=== PATIENT | male | born 1970 | race Caucasian/White ===

== ENCOUNTER 2024-07-08 13:56 | Outpatient (CLI) | payer BC, SELFPAY ==
--- NOTE | ~2024-07-08 | CT_ITS ---
EXAMINATION: CT lung screening DATE: 07/08/2024 14:18 INDICATION: HX OF NICOTINE DEPENDENCE, quit smoking X 2 years TECHNIQUE: Computed tomography (CT) of the chest was performed without intravenous contrast. Addition al 3D reconstructions utilizing coronal maximum intensity projection (MIP) were performed. Automated exposure control and iterative reconstruction technique were employed. The dose-length product was 63 .96 mGy-cm. COMPARISON: None FINDINGS: Mild emphysema. Minimal atelectasis at the inferior right middle lobe and lingula. No suspicious pulm onary or endobronchial nodules, pneumonia, pulmonary edema or pleural effusion. Heart size is normal. No pericardial effusion. Prominent aortic valve calcification. Thoracic aorta is normal in caliber. No pathologically enlarged thoracic lymphadenopathy. Incompletely visualized at least 3.9 x 3.0 cm so ft tissue density mass abutting the anterior margin of the kidney which could represent a loop of sma ll bowel or exophytic complex cyst or neoplasm. IMPRESSION: 1. Lung-RADS category 1: Negative. Continue annual screening with noncontrast low-dose chest CT in 12 months. 2. Incompletely visualized at least 3.9 x 3.0 cm mass abutting the anterior left kidney which could r epresent a loop of small bowel or exophytic complex cystic renal lesion or renal cell carcinoma. Homero mmend further evaluation with pre and postcontrast MRI or CT. Reviewed, dictated and finalized at location B. IMPRESSION: 1. Lung-RADS category 1: Negative. Continue annual screening with noncontrast l ow-dose chest CT in 12 months. 2. Incompletely visualized at least 3.9 x 3.0 cm mass abutting the anterior lef t kidney which could represent a loop of small bowel or exophytic complex cysti c renal lesion or renal cell carcinoma. Recommend further evaluation with pre a nd postcontrast MRI or CT.
== END 2024-07-08 13:57 | disposition home or self-care (01) ==
LOC: CHSIMG 13:58
PROVIDERS: PCP Internal Medicine; Visit Provider Internal Medicine
DX: Z12.2 Encounter for screening for malignant neoplasm of respiratory organs (principal); Z87.891 Personal history of nicotine dependence
CPT/HCPCS: 71271

== ENCOUNTER 2024-08-22 12:41 | Outpatient (CLI) | payer BC, SELFPAY | END 2024-08-22 12:42 | disposition home or self-care (01) | LOC: ANHLAB 12:42 | PROVIDERS: PCP Internal Medicine; Visit Provider Anesthesiology | DX: K40.90 Unilateral inguinal hernia, without obstruction or gangrene, not specified as recurrent (principal) | CPT/HCPCS: 36415; 86850; 86900; 86901 ==

== ENCOUNTER 2024-08-26 00:22 | Day surgery (SDC) | payer BC, SELFPAY ==
[2024-08-19 11:01] VITALS: BMI 22.1
--- NOTE | 2024-08-19 11:08 | PC.NURSE ---
Report to the Outpatient Waiting Room, entrance under the green pavilion located off [facility], at time _0600_ on date _[id number]_. Planned Procedure Time: _0730_.? Time changes happen often and if your time is changed the preop area will call you the afternoon before. - You and your visitor will be asked to self-screen and do not enter if you have any COVID symptoms. Please call surgeon if you need to reschedule. - A mask is optional within the hospital at this time. Patients may have clear liquids (water, carbonated beverages, clear teas, apple juice) until 3 hours prior to surgery with a maximum of 20 ounces. - No food from midnight until time of surgery and no smoking Take only the following medications with a SIP of water on the morning of surgery: __Inhalers DO NOT STOP ANY OF YOUR OTHER PRESCRIPTION MEDICATIONS PRIOR TO SURGERY EXCEPT THE FOLLOWING Medications to discontinue per physician ____None Please no make-up, nail nigerian, hairspray, perfume, deodorant, or body powder the day of surgery.? No jewelry (including any body piercings) or valuables the day of surgery, leave them at home.? Please take a shower or bath the night before, or the morning of, surgery with an antibacterial soap.? Wear comfortable, loose fitting clothing.? - Jewelry must be removed prior to entering the operating room.? Rings and piercings that are not removed may be cut off. - The hospital will not accept responsibility for valuables.? - Please leave all valuables, including medications, at home the day of surgery. If you are going home after surgery, a licensed boom truck driver must drive you home.? - NO public transportation without another adult if you receive anesthesia. - We recommend that an adult stay with you for 24 hours following discharge. - We also recommend that you do not drive, make important decision, drink alcoholic beverages, or take any drugs that were not prescribed by your health care provider for at least 24 hours after your discharge time. Follow any additional instructions given to you from your surgeon. Telephone instructions given to _Susana/wife__and asked if any additional questions and then verbalized understanding. Patient called before this interview and gave permission to speak to Susana. Patient advised to call surgeon office or pre surgery nurse liaison [phone] if any additional questions.
[2024-08-26] VITALS (7 sets, daily range): BP systolic 113–121; BP diastolic 75–85; PULSE 64–82; RESP 14–20; TEMP 36.2–36.6; O2SAT 97–100; BMI 21.9
[2024-08-26] MEDS: LACTATED RINGERS 1,000 ML 30 ML IV CONT ×2 (06:40→08:42)
[2024-08-26] MEDS: KETOROLAC 15 MG/ML VIAL (*BKC) IV PUSH (06:55)
[2024-08-26] MEDS: ACETAMINOPHEN 500 MG TABLET 1000 MG PO (06:55)
--- NOTE | 2024-08-26 07:11 | WPDHPUPDATE1 ---
History and Physical Update Update Date/Time: 08/26/24 07:11 History and Physical has been reviewed, including an updated exam of the patient. There are NO changes in the patient's condition. Risks, benefits, and alternatives have been discussed and questions answered. Patient agrees to proceed with procedure.
--- NOTE | 2024-08-26 07:11 | PM.IMHP ---
H&P: HPI History of Present Illness Date/Time: 08/26/24 07:11 Chief Complaint: right inguinal hernia Narrative: 53 yo man presents for right inguinal hernia repair. He reports no changes since last seen in office. Review of Systems Review of Systems: All systems reviewed & are unremarkable except as noted in HPI and below Constitutional: Constitutional: Denies chills, Denies fever(s), Denies headache(s) and Denies weight loss Eyes: Eyes: Denies change in vision ENT: Denies dizziness, Denies headache(s), Denies neck mass and Denies throat swelling Cardiovascular: Cardiovascular: Denies chest pain, Denies lightheadedness and Denies dyspnea Respiratory: Respiratory: Denies cough, Denies dyspnea and Denies wheezing Gastrointestinal: Gastrointestinal: Denies abdominal pain, Denies change in bowel habits, Denies nausea and Denies vomiting Genitourinary: Genitourinary: Denies hematuria and Denies dysuria Musculoskeletal: Musculoskeletal: Reports as per HPI Integumentary/Breasts: Skin/Breast: Reports as per HPI Neurologic: Denies dizziness and Denies headache(s) Allergic/Immunologic: Allergic/Immunologic: Denies throat swelling and Denies wheezing PMFSH Past Medical History Medical History COPD (chronic obstructive pulmonary disease) Surgical History Surgical History History of vasectomy Family History Family History Mother Diabetes mellitus Father Cerebrovascular accident Heart disease Social History Social History Years smoked: 20 Smoking status: Former smoker Tobacco type: cigarettes Smoking end date: 08/19/20 Alcohol intake: never Substance use: never Do You Feel Safe in your Home?: Yes Lack of Transportation: No Lack of Food: Never True Current Housing: I Have Housing Concerned About Future Housing: No Difficulty Paying Gas/Electric Bills: No Difficulty Paying for Meds: No Currently Unemployed: No Education: High School Diploma/GED Difficulty w/ Childcare or Family Care: No Living arrangements: with family Spiritual care concerns: No Meds Home Medications and Allergies Home Medications Medication Instructions Recorded Confirmed Type fluticasone 100 mcg-salmeterol 50 1 inh inhalation Q12H 07/17/24 08/19/24 History mcg/dose blistr powdr for inhalation (Wixela Inhub) ipratropium 20 mcg-albuterol 100 1 puff inhalation QID 07/17/24 08/26/24 History mcg/actuation mist for inhalation (Combivent Respimat) Allergies Allergy/AdvReac Type Severity Reaction Status Date / Time levofloxacin [From Levaquin] AdvReac Intermediate Rash Verified 08/26/24 06:53 Vital Signs Vital Signs - 24 hr 08/26/24 06:02 Temperature 97.1 F L Pulse Rate 77 Respiratory Rate 18 Blood Pressure 121/85 Pulse Oximetry 100 Oxygen Delivery Room Air Exam Const: General: no acute distress and alert Orientation/consciousness: patient oriented x3 HENMT: Head: normocephalic and atraumatic Ears: hearing grossly normal bilaterally Face/Nose/Sinus: Normal nares present Mouth: Yes Normal oral and palatal mucosa present Eyes: Periorbital: periorbital findings normal Sclera: sclerae normal EOM: EOMs intact bilaterally Neck: Neck: normal visual inspection, no lymphadenopathy and trachea midline Chest: Chest palpation & inspection: normal inspection of the chest Resp: Effort & Inspection: normal respiratory effort Auscultation: clear to auscultation bilaterally Cardio: Jugular venous distension: no JVD Rate: regular rate Rhythm: regular rhythm Heart sounds: S1 normal heart sound present and S2 normal heart sound present Peripheral pulses: Peripheral pulses 2+ throughout GI: Inspection: normal to inspection GI Palp: Yes Soft to palpation, No Tenderness to palpation present (GI), No Guarding due to palpation present (GI) and No Rebound tenderness present Percussion: Yes normal to percussion Auscultation: normal bowel sounds : General: Yes no CVA tenderness Scrotum: inguinal hernia on the right Back/Spine/Pelvis: Back: no CVA tenderness Neuro: General: patient oriented x3, no focal motor deficits and CN's II-XI intact bilaterally Cognition (Neuro): normal cognition Speech: normal speech Motor exam (neuro): 5/5 motor strength present throughout Extrem: General: capillary refill normal and no clubbing, cyanosis or edema Assessment and Plan Assessment and plan (1) Right inguinal hernia: Code(s): K40.90 - Unilateral inguinal hernia, without obstruction or gangrene, not specified as recurrent Status: Acute Assessment and Plan: I have recommended laparoscopic right inguinal hernia repair with mesh, da Sachin assisted. I have discussed the procedure, risks, benefits, and alternatives with the patient. All questions answered. No changes since last seen in office.
--- NOTE | 2024-08-26 07:21 | P.PNAN_ITS ---
Anes - Initial Pre Proc Eval Procedure: Operation Date: 08/26/24 07:30 Proposed Procedures p Laparoscopic Right Inguinal Hernia with Mesh, Davinci Assisted - Miguelito Enciso DO Date/Time: 08/26/24 07:21 Surgeon: Miguelito Enciso DO Pre Op Diagnosis: Rt Ing Hernia Patient Data Age: 53 Gender: M Height: 1.6 m Weight: 56 kg Last Vital Signs Temp 97.1 F L 08/26/24 06:02 Pulse 77 08/26/24 06:02 Resp 18 08/26/24 06:02 BP 121/85 08/26/24 06:02 Pulse Ox 100 08/26/24 06:02 O2 Del Method Room Air 08/26/24 06:02 Allergies Allergy/AdvReac Type Severity Reaction Status Date / Time levofloxacin [From Levaquin] AdvReac Intermediate Rash Verified 08/26/24 06:53 Home Medications Medication Instructions Recorded Confirmed Type fluticasone 100 mcg-salmeterol 50 1 inh inhalation Q12H 07/17/24 08/19/24 History mcg/dose blistr powdr for inhalation (Wixela Inhub) ipratropium 20 mcg-albuterol 100 1 puff inhalation QID 07/17/24 08/26/24 History mcg/actuation mist for inhalation (Combivent Respimat) Patient hx anesthesia problems: none Family hx anesthesia problems: none Results Review: All pre-operative results and documents have been reviewed as part of the pre- operative evaluation. [facility] Past Medical History Medical History COPD (chronic obstructive pulmonary disease) Surgical History Surgical History History of vasectomy Family History Family History Mother Diabetes mellitus Father Cerebrovascular accident Heart disease Social History Social History Years smoked: 20 Smoking status: Former smoker Tobacco type: cigarettes Smoking end date: 08/19/20 Alcohol intake: never Substance use: never Do You Feel Safe in your Home?: Yes Lack of Transportation: No Lack of Food: Never True Current Housing: I Have Housing Concerned About Future Housing: No Difficulty Paying Gas/Electric Bills: No Difficulty Paying for Meds: No Currently Unemployed: No Education: High School Diploma/GED Difficulty w/ Childcare or Family Care: No Living arrangements: with family Spiritual care concerns: No Anes - Eval Final PreProcedure Day of Procedure 08/26/24 07:21 Patient weight: normal Heart: regular rate and rhythm Lungs: clear to auscultation Airway: Mallampati scale class II Neurological: alert and oriented Last oral intake: >/= 8 hours ASA classification: III Emergent: no Anesthetic plan: proceed Anesthesia type and monitoring: general ETT and standard monitoring Results Review: All pre-operative results and documents have been reviewed as part of the pre- operative evaluation. Informed Consent: The patient's anesthetic plan and its attendant risks and benefits were discussed with the patient/family/POA. Questions were solicited and answers provided to the satisfaction of the patient/family/POA.
[2024-08-26] MEDS: ceFAZolin 2 GM/D5W 50 ML 2 GM/50 ML BAG IVPB (07:28)
--- NOTE | 2024-08-26 08:25 | W.PM.PROC2 ---
Procedure Note - Detailed Date of Procedure 08/26/24 Pre-op Diagnosis Rt Ing Hernia Post-op Diagnosis Same (Direct [facility]) Procedure Performed Laparoscopic right inguinal hernia repair with mesh, da Sachin assisted Surgeon Miguelito Enciso DO Anesthesia General and Local (0.5% bupivacaine with epinephrine) Indications This is a 53-year-old man who presented with a right groin bulge that he had 1st noticed about 3 years ago. It has gradually become larger over that time. He now has an easily visible right inguinal hernia. Discussions were made with the patient about treatment options and decision was made to proceed with robotic assisted laparoscopic right inguinal hernia repair with mesh. Findings Laparoscopic right inguinal hernia repair was performed. The patient was found to have a moderate-sized direct right inguinal hernia. There was no evidence of a left inguinal hernia. A robotic transabdominal preperitoneal approach was utilized for right inguinal hernia repair. Once a wide enough preperitoneal pocket was created and the hernia sac was reduced, I then placed a large right 3DMax mid mesh overlying the entire right myopectineal orifice. No specimens were obtained for pathology. Description of Procedure Procedure as well as risks, benefits, and alternatives were discussed with the patient. Written consent was obtained and placed in chart prior to procedure. Patient was brought back to surgical suite. He was placed supine on operating table. Time-out was done to confirm patient and procedure. He was then intubated by Anesthesia Department. His abdomen was prepped and draped in sterile fashion using chlorhexidine prep. 0.5% bupivacaine with epinephrine was infiltrated at each location for incision. A 12 millimeter transverse incision was made just superior to the umbilicus using a 15 blade scalpel. Blunt dissection was carried out down to the linea alba. A vertical incision was made at the linea alba using a 15 blade scalpel. The peritoneum was then bluntly entered. A 12 millimeter trocar was inserted and carbon dioxide insufflation was used to create a pneumoperitoneum. A camera was inserted and the abdominal cavity was inspected. The patient was placed in slight Trendelenburg position. An 8 millimeter incision was made on the right lateral abdomen and an 8 millimeter trocar was inserted under direct visualization. Another 8 millimeter incision was made in the left lateral abdomen and an 8 millimeter trocar was inserted under direct visualization. The robotic arms were brought up to the patient's bedside and secured to the ports. The camera and instruments were inserted. I then moved over to the robotic console and took control of the camera and instruments. After careful inspection of the abdominal cavity, I began scoring the peritoneum along the right lower quadrant using scissors with electrocautery. The preperitoneal plane was entered and this was carefully dissected caudally along the inferior epigastric vessels. Careful dissection with scissors with electrocautery and blunt dissection was used to continue this dissection. I dissected far enough laterally to allow for mesh placement, and also dissected medially to identify the pubic arch and Alonso's ligament. The hernia sac was identified and carefully dissected posteriorly. The cord contents were also identified and the peritoneum was carefully dissected far enough posteriorly to allow for mesh placement. Once an adequate pocket was created, I then placed the mesh within the preperitoneal pocket and carefully unfolded it. The mesh was centered on the hernia defect with adequate overlap circumferentially. The inferior edge of the mesh was inspected to ensure that it was far enough away from the peritoneal edge. The mesh appeared in proper position overlying the entire myopectineal orifice. The mesh was secured using 3-0 Vicryl simple interrupted sutures in Alonso's ligament, the superior medial edge, and superior lateral edge of the mesh. The peritoneum was then closed over the mesh using a 3-0 V-lock running absorbable suture. The robotic instruments were removed. The robotic arms were disengaged from the ports and moved away from the bedside. The patient was flattened out in bed, the ports were removed under direct visualization, and the pneumoperitoneum was released. The fascia of the umbilical incision was approximated using an 0 Vicryl [id number] suture. The skin of the incisions was approximated using 4-0 Monocryl subcuticular suture, and Exofin glue was applied on top. The patient was awakened from anesthesia, extubated, and transferred to recovery. Implants Large right 3DMax mid mesh Estimated Blood Loss 5 Complications No immediate complications Condition Stable Disposition Same day [facility] Billing Surgery - Charge Forward: Surgery Billing
[2024-08-26] MEDS: BUPIVACAINE/EPINEPHRINE 0.5% 50 ML VIAL INFILTRATE (08:30)
--- NOTE | 2024-08-26 10:04 | SUR.PHASEII ---
Pt ambulated to bathroom and voided unmeasured amt of clear yellow urine without difficulty.
== END 2024-08-26 10:11 | disposition home or self-care (01) ==
PROVIDERS: PCP Internal Medicine; Visit Provider Surgery
PROC: 8E0Y4CZ Robotic Assisted Procedure of Lower Extremity, Percutaneous Endoscopic Approach (ICD-10-PCS; CPT 49650; principal; 2024-08-26 07:30)
DX: K40.90 Unilateral inguinal hernia, without obstruction or gangrene, not specified as recurrent (principal); J44.9 Chronic obstructive pulmonary disease, unspecified; Z79.51 Long term (current) use of inhaled steroids; Z98.890 Other specified postprocedural states; Z87.891 Personal history of nicotine dependence; Z82.49 Family history of ischemic heart disease and other diseases of the circulatory system
CPT/HCPCS: 49650; S2900; A9270; C1781; J0690; J1100; J1885; J2003; J2250; J2405; J2704; J3010; J7030; J7120

== ENCOUNTER 2025-07-27 13:15 | Outpatient (CLI) | payer BC, SELFPAY ==
--- NOTE | ~2025-07-27 | US_ITS ---
EXAMINATION: US carotid duplex BI DATE: 07/27/2025 14:33 INDICATION: Systolic heart murmur. TECHNIQUE: Grayscale, color Doppler, and pulsed Doppler images of the cervical carotid arteries were obtained. The degree of vessel stenosis is placed in one of the following categories: normal, <50%, 50-69%, >=70% but less than near- occlusion, near-occlusion, or total occlusion. Note that percent stenosis relative to normal distal artery lumen diameter is indirectly measured from velocity measurements as described by Quique, et al. Radiology 2003; 229:340-346. COMPARISON: None. FINDINGS: RIGHT: The right common carotid artery (CCA) peak systolic velocity (PSV) is 100 cm/s. The right internal carotid artery (ICA) PSV is 77 cm/s. The right ICA end- diastolic velocity (EDV) is 37 cm/s. The right ICA/CCA PSV ratio is 0.8. Grayscale and color Doppler images yield an estimate of <50% diameter reduction from plaque in the ICA. There is antegrade flow in the right vertebral artery. LEFT: The left CCA PSV is 113 cm/s. The left ICA PSV is 111 cm/s. The left ICA EDV is 46 cm/s. The left ICA/CCA PSV ratio is 1.0. Grayscale and color Doppler images yield an estimate of <50% diameter reduction from plaque in the ICA. There is antegrade flow in the left vertebral artery. IMPRESSION: 1. <50% stenosis in the right internal carotid artery. 2. <50% stenosis in the left internal carotid artery. Reviewed, dictated and finalized at location E.
--- NOTE | 2025-07-27 13:26 | ECHO_ITS ---
Patient Info Name: Quinton Babb Age: 54 years : 1970 Gender: Male Ht: 63 in Wt: 125 lbs BSA: 1.59 m2 HR: 75 bpm BP: 132 / 81 mmHg Technical Quality: Good Exam Date: 07/27/2025 1:28 PM Patient Status: O Admit Date: 07/27/2025 Exam Type: CA echo doppler color flow Complete two-dimensional, color flow and Doppler transthoracic echocardiogram is performed. Staff Referring Physician: Jacques Mckee MD [employer]ide Furnace Tender: Lauren Urias Attending Provider: Jacques Mckee MD Summary 1. Complete two-dimensional, color flow and Doppler transthoracic echocardiogram is performed. 2. Left ventricular chamber dimension is normal. 3. Left ventricular systolic function is normal, estimated at 60-65. 4. There is mild concentric increased left ventricular wall thickness. 5. The left ventricular diastolic function is normal. 6. E/e' 6 is not elevated. 7. The aortic valve is not well visualized. Cannot determine number of aortic valve leaflets. 8. There is severe aortic valve sclerosis. 9. There is severe aortic valve stenosis with a peak velocity of 447 cm/s, mean gradient of 49 mmHg, and aortic valve area of 0.7 cm2. 10. There is mild aortic valve regurgitation. 11. There is mild mitral valve regurgitation. Left Ventricle E/e' 6 is not elevated. Left ventricular chamber dimension is normal. Left ventricular systolic function is normal, estimated at 60-65. There is mild concentric increased left ventricular wall thickness. The left ventricular diastolic function is normal. Right Ventricle Right ventricular chamber dimension is normal. Right ventricular systolic function is normal and with normal TAPSE 1.8 cm. Left Atria Left atrial chamber dimension is normal. Right Atria Right atrial chamber dimension is normal. Aortic Valve The aortic valve is not well visualized. Cannot determine number of aortic valve leaflets. There is severe aortic valve sclerosis. There is severe aortic valve stenosis with a peak velocity of 447 cm/s, mean gradient of 49 mmHg, and aortic valve area of 0.7 cm2. There is mild aortic valve regurgitation. Pulmonic Valve There is no pulmonic regurgitation. Mitral Valve There is no mitral valve stenosis. There is mild mitral valve regurgitation. Tricuspid Valve There is no tricuspid valve regurgitation. Pericardium/Pleural There is no pericardial effusion. Inferior Vena Cava Normal inferior vena cava with >50% collapse upon inspiration consistent with normal right atrial pressure, 5 mmHg. Aorta The aortic root size at the sinus of Valsalva is normal. Left Ventricular Outflow Tract Name Value Normal LVOT 2D LVOT Diameter 2.0 cm LVOT Doppler LVOT Peak Velocity 81 cm/s LVOT Peak Gradient 2 mmHg LVOT Mean Gradient 1 mmHg LVOT VTI 20 cm LVOT VTI/AV VTI Ratio 0.2 LVOT Stroke Volume 59 ml LVOT CO 4.3 l/min LVOT CI 2.7 l/min/m2 Pulmonic Valve Name Value Normal RVOT Doppler RVOT Peak Velocity 68 cm/s RVOT Peak Gradient 2 mmHg PV Doppler PV Peak Velocity 106 cm/s PV Peak Gradient 5 mmHg Mitral Valve Name Value Normal MV Diastolic Function MV E Peak Velocity 69 cm/s MV A Peak Velocity 54 cm/s MV E/A 1.3 MV Decel Time (PW) 226 ms MV Annular TDI MV E/e' (Septal) 6.2 MV E/e' (Lateral) 7.1 MV E/e' (Average) 6.7 Tricuspid Valve Name Value Normal Estimated PAP/RSVP RA Pressure 5 mmHg <=5 Aortic Valve Name Value Normal AV Doppler AV Peak Velocity 447 cm/s AV Peak Gradient 72 mmHg AV Mean Gradient 49 mmHg AV VTI 91 cm AV Area (Cont Eq VTI) 0.7 cm2 >=3.0 AV Area (Cont Eq Gelacio) 0.5 cm2 AV DI (Gelacio) 0.18 AV Regurgitation 2D LVOT Area 3.0 cm2 Ventricles Name Value Normal LV Dimensions 2D/MM IVS Diastolic Thickness (2D) 1.1 cm 0.6-1.0 LVID Diastole (2D) 4.0 cm 4.2-5.8 LVIW Diastolic Thickness (2D) 1.1 cm 0.6-1.0 LVID Systole (2D) 2.8 cm 2.5-4.0 LVOT Diameter 2.0 cm LV Mass (2D Cubed) 138.96 g 88.00-224.00 LV Mass Index (2D Cubed) 87 g/m2 49-115 Relative Wall Thickness (2D) 0.53 <=0.42 LV Fractional Shortening/Ejection Fraction 2D/MM LV Fractional Shortening (2D) 29 % 25-43 LV EF (2D Teichholz) 57 % LV Diastolic Volume (4C MOD) 79 ml LV EF (4C MOD) 62 % LV Diastolic Volume (2C MOD) 91 ml LV EF (2C MOD) 54 % LV Diastolic Volume (BP MOD) 85 ml 62-150 LV Diastolic Volume Index (BP MOD) 54 ml/m2 34-74 LV Systolic Volume (BP MOD) 36 ml 21-61 LV Systolic Volume Index (BP MOD) 23 ml/m2 11-31 LV EF (BP MOD) 57 % 52-72 LV Diastolic Length (4C) 8.1 cm LV Systolic Length (4C) 7.1 cm LV Stroke Volume (4C MOD) 49 ml Atria Name Value Normal LA Dimensions LA Volume (4C A-L) 15 ml LA Volume (BP A-L) 28 ml RA Dimensions RA Systolic Major Porter Length (4C) 3.6 cm 2.1-2.7 RA Area (4C) 7.1 cm2 <=18.0 Report Signatures
== END 2025-07-27 13:16 | disposition home or self-care (01) ==
LOC: CHSIMG 13:19
PROVIDERS: PCP Internal Medicine; Visit Provider Internal Medicine
DX: R01.1 Cardiac murmur, unspecified (principal); I65.23 Occlusion and stenosis of bilateral carotid arteries; I08.0 Rheumatic disorders of both mitral and aortic valves; I35.0 Nonrheumatic aortic (valve) stenosis
CPT/HCPCS: 93306; 93880

== ENCOUNTER 2025-09-10 22:16 | Emergency (ER) | payer BC, SELFPAY ==
--- NOTE | ~2025-09-10 | CT_ITS ---
EXAMINATION: CTA chest abdomen pelvis DATE: 09/11/2025 00:10 INDICATION: Sternal chest pain. TECHNIQUE: Computed tomographic angiography (CTA) of the chest, abdomen, and pelvis was performed with 100 mL Omnipaque-350 intravenous contrast. Automated exposure control and iterative reconstruction technique were employed. The dose- length product was 354.82 mGy-cm. Maximum intensity projection 3D-r econstructions of the aorta and other arteries were constructed by the technologist on a separate workstation. COMPARISON: Chest CT 07/08/2024 FINDINGS: CHEST CTA: There is mild emphysema. There is mild scarring at the lung apices. There is mild atelectasis bilaterally. There are 5 mm and 3 mm nodules in right lung upper lobe. No pleural effusion. The heart size is normal. There are calcifications of the aortic valve. No pericardial effusion. There is no pulmonary embolus. There is mild thoracic spondylosis. There is mild chronic anterior wedging of T11 and T12 vertebral bodies. ABDOMEN AND PELVIS CTA: The liver, gallbladder, spleen, pancreas, and left adrenal gland are normal. There is a 1.6 cm mass in right adrenal gland measuring low attenuation, consistent with an adenoma. There is a 4.3 cm mass in left kidney that measures 68 HU postcontrast and 51 HU precontrast. There are simple cysts in the kidneys measuring up to 1.6 cm on the left. There is a left inguinal hernia containing fat. The prostate is mildly enlarged. The appendix is normal. There are no dilated loops of bowel. There are no pathologically enlarged lymph nodes. There is no ascites. There is no significant stenosis of celiac axis, superior mesenteric artery, the renal arteries, or inferior mesenteric artery. Aortic atherosclerosis is noted. There is mild lumbar spondylosis. There is mild chronic anterior wedging of L1 vertebral body. IMPRESSION: 1. No pulmonary embolus. 2. Aortic atherosclerosis. No aneurysm or dissection. 3. New 5 mm pulmonary nodule, probably benign. Noncontrast chest CT is recommended in 6 months. 4. Mild emphysema. 5. 4.3 cm mass in left kidney that is indeterminate for contrast enhancement and may be a hemorrhagic cyst or renal cell carcinoma. Abdomen CT or MRI without and with contrast is recommended. Reviewed, dictated and finalized at location E. MICS AX CONSULTANT IMPRESSION: 1. No pulmonary embolus. 2. Aortic atherosclerosis. No aneurysm or dissection. 3. New 5 mm pulmonary nodule, probably benign. Noncontrast chest CT is recommen ded in 6 months. 4. Mild emphysema. 5. 4.3 cm mass in left kidney that is indeterminate for contrast enhancement an d may be a hemorrhagic cyst or renal cell carcinoma. Abdomen CT or MRI without and with contrast is recommended.
--- NOTE | ~2025-09-10 | XR_ITS ---
Examination: XR chest 1V portable Clinical History: STERNAL CHEST PAIN X 1 HR. Comparison: None Technique: Portable AP Findings: Heart size normal. Mild emphysema. Lungs otherwise clear. No acute bony abnormality. IMPRESSION: 1. No acute cardiopulmonary findings given portable technique. Reviewed, dictated and finalized at location R. TICAL NURSE
--- NOTE | 2025-09-10 22:17 | ECG_ITS ---
Test Date: 2025-09-10 22:19:12 Measurements Intervals [place] Rate: 81 P: 48 ND: 114 QRS: 88 QRSD: 86 T: 77 QT: 353 QTc: 411 Interpretive Statements SINUS RHYTHM No previous ECG available for comparison Electronically Signed On 09-13-2025 12:08:30 [employer]PER[employer] by Chandler Morse M.D.
--- NOTE | 2025-09-10 22:18 | ED.CHESTPAIN ---
HPI - Chest Pain General Chief Complaint: Chest Pain Stated Complaint: Chest Pain Time Seen by Provider: 09/10/25 22:17 Source: patient and family Mode of arrival: ambulatory Limitations: no limitations History of Present Illness HPI narrative: Patient is a 54-year-old male with mid substernal slightly proximal to the epigastric area pain for the past few hours. This was acute onset. He has known aortic stenosis severe and vascular surgeon appointment coming soon. He also has possible coronary disease and stress test agenda planning at this time. No nausea vomiting diarrhea. No abdominal pain per se. No pain radiating to the back. MD complaint: chest pain Pertinent past history: other (Known severe aortic stenosis) Onset (ago): hour(s) (Today) Timing of current episode: episodic, increasing and still present Prior episodes: Yes Onset: during rest Pain location: substernal, epigastric and subxiphoid Pain radiation: none Severity: severe Pain scale (0-10): 10 Quality: sharp Relieving factors: nothing Exacerbating factors: palpation Context: recent illness Associated symptoms: sense of impending doom Treatment prior to arrival: none Risk Factors Coronary artery disease risk factors: hypertension Thoracic aortic dissection risk factors: acortic valve defect (bicuspid aortic valve) Related Data Home Medications ?Medication ?Instructions ?Recorded ?Confirmed ?Last Taken ?Type fluticasone 100 mcg-salmeterol 50 1 inh inhalation Q12H 07/17/24 09/11/24 Unknown History mcg/dose blistr powdr for inhalation (Wixela Inhub) ipratropium 20 mcg-albuterol 100 1 puff inhalation QID 07/17/24 09/11/24 08/26/24 04:30 History mcg/actuation mist for inhalation (Combivent Respimat) Allergies Allergy/AdvReac Type Severity Reaction Status Date / Time levofloxacin (From Levaquin) AdvReac Intermediate Rash Verified 09/10/25 22:23 Review of Systems Review of Systems: All systems reviewed & are unremarkable except as noted in HPI and below Constitutional: Constitutional: Reports no additional constitutional complaints Eyes: Eyes: Reports no additional eye complaints ENT: Reports system reviewed and no additional complaints, except as documented Cardiovascular: Cardiovascular: Reports no additional cardiovascular complaints Respiratory: Respiratory: Reports no additional respiratory complaints Gastrointestinal: Gastrointestinal: Reports no additional gastrointestinal complaints Genitourinary: Genitourinary: Reports no additional male genitourinary complaints Musculoskeletal: Musculoskeletal: Reports no additional musculoskeletal complaints Integumentary/Breasts: Skin/Breast: Reports system reviewed and no additional complaints, except as docu Neurologic: Reports system reviewed and no additional complaints, except as documented Psychiatric: Psychiatric: Reports no additional psychiatric complaints Endocrine: Endocrine: Reports no additional endocrine complaints Hematologic/Lymphatic: Hematologic/Lymphatic: Reports no additional hematologic/lymphatic complaints Allergic/Immunologic: Allergic/Immunologic: Reports no additional allergic/immunologic complaints PMFSH Past Medical History Medical History COPD (chronic obstructive pulmonary disease) Surgical History Surgical History H/O right inguinal hernia repair 08/26/24 Laparoscopic right inguinal hernia repair with mesh, da Sachin assisted. Dr. Enciso History of vasectomy Family History Family History Mother Diabetes mellitus Father Cerebrovascular accident Heart disease Social History Social History Years smoked: 20 Smoking status: Former smoker Tobacco type: cigarettes Smoking end date: 08/19/20 Alcohol intake: never Substance use: never Do You Feel Safe in your Home?: Yes Lack of Transportation: No Lack of Food: Never True Current Housing: I Have Housing Concerned About Future Housing: No Difficulty Paying Gas/Electric Bills: No Difficulty Paying for Meds: No Currently Unemployed: No Education: High School Diploma/GED Difficulty w/ Childcare or Family Care: No Living arrangements: with family Spiritual care concerns: No Exam Const: General: healthy appearing Nutritional Appearance: well nourished Orientation/consciousness: patient oriented x3 Limitations: no limitations HENMT: Head: normal to inspection Ears: external ears normal Face/Nose/Sinus: Normal external nose present Eyes: Conjunctivae: conjunctivae normal Pupils: Equal, round and reactive pupils present EOM: EOMs intact bilaterally Neck: Neck: normal visual inspection Chest: Chest palpation & inspection: normal inspection of the chest Other: Tender anterior chest wall at the subxiphoid process Resp: Effort & Inspection: normal respiratory effort and not labored Auscultation: clear to auscultation bilaterally and no crackles Cardio: Rate: regular rate Rhythm: regular rhythm Heart sounds: Murmur heart sound present continuous and systolic GI: Inspection: non-distended GI Palp: Yes Soft to palpation, Yes Tenderness to palpation present (GI) (Epigastrium area), No Guarding due to palpation present (GI), No Rigid due to palpation, No Hernia present, No Palpable mass present and No Rebound tenderness present Auscultation: normal bowel sounds Rectal Exam: normal sphincter tone : General: Yes bladder normal to palpation Back/Spine/Pelvis: Back: no CVA tenderness Course Vital Signs Vital signs: Vital Signs Pulse Rate 85 09/10/25 22:20 Pulse Oximetry 100 09/10/25 22:20 Oxygen Delivery Room Air 09/10/25 22:20 Temperature 36.6 C 09/10/25 22:28 Pulse Rate 92 09/11/25 00:05 Respiratory Rate 14 09/11/25 00:05 Blood Pressure 155/89 H 09/11/25 00:05 Pulse Oximetry 100 09/11/25 00:05 Oxygen Delivery Room Air 09/10/25 22:28 MDM - Chest Pain MDM Narrative Medical decision making narrative: Patient is a 54-year-old male with chest pain that does not radiate to the back starting yesterday and today. He has aortic stenosis and vascular surgeon pending. We will do a cardiopulmonary workup at this time. Lab Data Attestation: I reviewed the patient's lab results. 09/10/25 22:49 09/10/25 22:49 Labs: Lab Results 09/10/25 09/11/25 Range/Units 22:49 01:14 WBC 11.5 H (4.8-10.8) K/mm3 RBC 4.76 (4.70-6.10) M/mm3 Hgb 13.9 L (14.0-18.0) g/dL Hct 40.8 (40.0-54.0) % MCV 85.7 (78.0-102.0) fL MCH 29.2 (27.0-31.0) pg MCHC 34.1 (32-36) g/dL RDW 14.1 (11.6-14.4) % Plt Count 208 (150-420) K/mm3 MPV 10.4 (8.7-11.0) fl Immature Gran % (Auto) 0.2 H (0.0-0.0) % Neut % (Auto) 46.6 L (50.0-70.0) % Lymph % (Auto) 40.2 (18.0-42.0) % [place] % (Auto) 8.6 (2.0-11.0) % Eos % (Auto) 3.2 (1.0-6.0) % Baso % (Auto) 1.2 H (0.0-1.0) % Lymph # (Auto) 4.62 H (1.10-4.50) K/mm3 [place] # (Auto) 0.99 H (0.10-0.90) K/mm3 Eos # (Auto) 0.37 (0.02-0.50) K/mm3 Baso # (Auto) 0.14 H (0.00-0.10) K/mm3 Abs Immat Gran (auto) 0.02 H (0.00-0.00) K/mm3 Absolute Neuts (auto) 5.36 (1.70-7.20) K/mm3 Absolute Nucleated RBC 0.00 (0.00-0.00) K/mm3 Nucleated RBC % 0.0 (0-0.0) % PT 10.8 (9.50-12.1) Seconds INR 1.0 APTT 26.8 (23.9-30.70) Sec D-Dimer 0.32 (0.19-0.50) mg/L Sodium 141 (137-145) mmol/L Potassium 3.5 (3.4-5.0) mmol/L Chloride 107 (98-107) mmol/L Carbon Dioxide 25 (22-30) mmol/L Anion Gap 9 (4-12) mmol/L BUN 18 (9-20) mg/dL Creatinine 1.35 H (0.7-1.3) mg/dL Estim Creat Clear Calc 45 ml/min Estimated GFR 55 L (59 - ) Glucose 124 H (65-110) mg/dL Calculated Osmolality 294 (285-295) mOsm/kg Calcium 9.0 (8.4-10.2) mg/dL Total Bilirubin 1.1 (0.2-1.3) mg/dL AST 35 (17-59) U/L ALT 29 (6-50) U/L Alkaline Phosphatase 88 (38-126) U/L Troponin I 0.019 Pending (0.000-0.034) ng/mL NT-Pro-B Natriuret Pep 268 H (19.9-100) pg/mL Total Protein 7.4 (6.3-8.2) g/dL Albumin 4.5 (3.5-5.1) g/dL Lipase 544 H (23-300) U/L ABG Data Attestation: I personally reviewed and interpreted this ABG as follows: ECG Data EKG #1: Attestation: I personally reviewed and interpreted this ECG as follows: ECG completion date: 09/10/25 ECG completion time: 22:38 EKG Interpretation: normal rate, bradycardia, sinus rhythm, no ectopy, ST depression, normal QRS and normal QT EKG #2: Attestation: I personally reviewed and interpreted this ECG as follows: ECG completion date: 09/11/25 ECG completion time: 01:31 Prior ECG tracings: available for review EKG Interpretation: normal rate, sinus rhythm, no ectopy, non-specific ST changes, normal QRS, normal QT, NL axis and no acute changes Discharge Plan Discharge Clinical Impression: LUTHER (acute kidney injury) Chest pain Qualifiers: Chest pain type: unspecified Qualified Code(s): R07.9 - Chest pain, unspecified Anemia Qualifiers: Anemia type: due to chronic kidney disease Chronic kidney disease stage: unspecified stage Qualified Code(s): N18.9 - Chronic kidney disease, unspecified Pancreatitis Qualifiers: Chronicity: acute Pancreatitis type: other Acute pancreatitis complication: unspecified Qualified Code(s): K85.80 - Other acute pancreatitis without necrosis or infection Aortic stenosis Qualifiers: Cardiac valve disease etiology: etiology unspecified Qualified Code(s): I35.0 - Nonrheumatic aortic (valve) stenosis Patient Disposition: Acute Care Hospital Condition: Stable Patient Language: Luxembourgish Prescriptions: No Action Combivent Respimat 20-100 mcg/actuation mist 1 puff inhalation QID Rx Instructions: space evenly during waking hours fluticasone propion-salmeterol [Wixela Inhub] 100-50 mcg/dose blister with device 1 inh inhalation Q12H Follow-up/Referrals: Jacques Mckee MD [Primary Care Provider, Internal Medicine] Time of Disposition: 01:33
[2025-09-10 22:20] VITALS: PULSE 85; O2SAT 100
[2025-09-10 22:28] VITALS: BP 142/85; PULSE 85; RESP 20; TEMP 36.6; O2SAT 100
[2025-09-10] MEDS: MORPHINE SULFATE (*CRX) 4 MG/ML INJ IV PUSH (22:28)
[2025-09-10] MEDS: ONDANSETRON INJ 4 MG/2 ML VIAL IV PUSH (22:29)
[2025-09-10 22:30] VITALS: BP 135/88; PULSE 87; RESP 17; O2SAT 100
[2025-09-10 22:47] VITALS: BP 149/91; PULSE 79; RESP 15; O2SAT 98
[2025-09-10 22:52] LABS: Hematocrit 40.8 % (40.0-54.0); Hemoglobin 13.9 g/dL (14.0-18.0); Immature Granulocyte Percent A 0.2 % (0.0-0.0); Lymphocytes Absolute Auto 4.62 K/mm3 (1.10-4.50); Mean Corpuscular HGB Conc 34.1 g/dL (32-36); Mean Corpuscular Hemoglobin 29.2 pg (27.0-31.0); Mean Corpuscular Volume 85.7 fL (78.0-102.0); Nucleated Red Blood Cells Absolute Auto 0.00 K/mm3 (0.00-0.00); Nucleated Red Blood Cells Perc 0.0 % (0-0.0); Platelet Count Result 208 K/mm3 (150-420); Red Blood Count 4.76 M/mm3 (4.70-6.10); White Blood Count 11.5 K/mm3 (4.8-10.8)
--- OUTSIDE RECORDS SUMMARY | 2025-09-10 22:53 | XMS_ITS | Encounter Summary ---
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
[2025-09-10 23:00] VITALS: BP 153/93; PULSE 78; RESP 17; O2SAT 98
[2025-09-10 23:05] LABS: Alanine Aminotransferase 29 U/L (6-50); Albumin Level 4.5 g/dL (3.5-5.1); Alkaline Phosphatase 88 U/L (38-126); Anion Gap 9 mmol/L (4-12); Aspartate Amino Transferase 35 U/L (17-59); Blood Urea Nitrogen 18 mg/dL (9-20); Calcium 9.0 mg/dL (8.4-10.2); Carbon Dioxide 25 mmol/L (22-30); Chloride 107 mmol/L (98-107); Estimated CRCL calculation 45 ml/min; Estimated Glomerular Filt Rate 55; Glucose 124 mg/dL (65-110); Lipase 544 U/L (23-300); Osmolality Calculated 294 mOsm/kg (285-295); Potassium 3.5 mmol/L (3.4-5.0); Sodium 141 mmol/L (137-145); Total Protein 7.4 g/dL (6.3-8.2)
[2025-09-10 23:09] LABS: INR 1.0; Partial Thromboplastin Time 26.8 Sec (23.9-30.70); Prothrombin Time 10.8 Seconds (9.50-12.1)
[2025-09-10 23:17] LABS: NT Pro B Type Natriuretic Pept 268 pg/mL (19.9-100)
[2025-09-10 23:18] LABS: Troponin I 0.019 ng/mL (0.000-0.034)
[2025-09-10] MEDS: SODIUM CHLORIDE 0.9% IV 1,000 ML 999 ML IV CONT (23:36)
[2025-09-11] VITALS (8 sets, daily range): BP systolic 114–155; BP diastolic 67–89; PULSE 74–93; RESP 14–28; TEMP 36.6; O2SAT 95–100
[2025-09-11] MEDS: HYDROmorphone HCL INJ (*CRX) 2 MG/ML VIAL 0.5 MG IV PUSH (00:37)
--- NOTE | 2025-09-11 00:58 | ECG_ITS ---
Test Date: 2025-09-11 01:27:52 Measurements Intervals [place] Rate: 83 P: 51 IA: 125 QRS: 78 QRSD: 86 T: 63 QT: 365 QTc: 431 Interpretive Statements SINUS RHYTHM Compared to ECG 09/10/2025 22:19:12 NO SIGNIFICANT CHANGES Electronically Signed On 09-13-2025 12:08:43 [employer]LE by Chandler Morse M.D.
[2025-09-11 01:58] LABS: Troponin I 0.241 ng/mL (0.000-0.034)
[2025-09-11] MEDS: ASPIRIN 81 MG CHEWABLE TABLET 324 MG PO (02:05)
--- NOTE | 2025-09-11 02:10 | PC.NURSE ---
Dr Reza in to speak w/ pt and his about need for transfer to cardiology, Pt and wanting time to discuss where to transfer. VSS, pt having no pain at this time, monitor shows NSR, continuing to monitor.
--- NOTE | 2025-09-11 02:18 | PC.NURSE ---
Pt wants transfer to [facility] or [facility].
[2025-09-11] MEDS: ENOXAPARIN 60 MG/0.6 ML SYRINGE SUB-Q (03:16)
[2025-09-11] MEDS: PIPERACILLIN/TAZOBACTAM SOD 3.375 GM in SODIUM CHLORIDE 0.9% IV 50 ML 100 ML IVPB (03:19)
--- NOTE | 2025-09-11 04:28 | PC.NURSE ---
Pt resting, continuing to monitor, VSS. Awaiting callback from [facility] for bed assignment.
--- NOTE | 2025-09-11 04:55 | PC.NURSE ---
Pt accepted and bed assigned at [facility]. Pt going to Rm [id number]. Report given.
[2025-09-14 13:48] LABS: Bilirubin,Total < 0.1 mg/dL (0.2-1.3)
--- NOTE | 2025-09-14 13:54 | PC.NURSE ---
Preliminary blood culture report; no growth in 24 hours.
--- NOTE | 2025-09-15 13:34 | PC.NURSE ---
preliminary blood cultures x2 reviewed. no growth in 48 hours
--- NOTE | 2025-09-18 14:00 | PC.NURSE ---
FINAL BLOOD CULTURE REPORT; NO GROWTH IN 5 DAYS.
== END 2025-09-11 05:35 | disposition short-term general hospital (02) ==
PROVIDERS: Emergency Provider Emergency Medicine; PCP Internal Medicine
DX: N17.9 Acute kidney failure, unspecified (principal); I12.9 Hypertensive chronic kidney disease with stage 1 through stage 4 chronic kidney disease, or unspecified chronic kidney disease; N18.9 Chronic kidney disease, unspecified; I35.0 Nonrheumatic aortic (valve) stenosis; K85.80 Other acute pancreatitis without necrosis or infection; R07.9 Chest pain, unspecified; J44.9 Chronic obstructive pulmonary disease, unspecified; Z87.891 Personal history of nicotine dependence
CPT/HCPCS: 36415; 71045; 71275; 74174; 80053; 83690; 83880; 84484; 85025; 85380; 85610; 85730; 87040; 93005; 96361; 96365; 96372; 96375; 99285; A9270; J1171; J1650; J2270; J2405; J2543; J7030; Q9967